=== PATIENT | female | born 1935 ===

== ENCOUNTER → 2017-12-21 | Emergency (ER) | payer OTHER ==
[~2017-12-21] VITALS: Ht 152.4 cm; Wt 60.8 kg
[~2017-12-21] MED LIST: CHEST CONG100 MG/5 M PO; CRESTOR10 MG; DIOVAN160 M1; PRELONE15 MG/5 ML PO; PROVENTIL S2 MG/5 ML PO; ZITHROMAX500 MG PO
== END | disposition home or self-care (01) ==
LOC: ER 10:10
DX: R42 Dizziness and giddiness (principal)

== ENCOUNTER 2018-06-14 21:38 | Emergency (ER) | payer OTHER ==
[~2018-06-14] VITALS: Ht 152.4 cm; Wt 54.9 kg
== END 2018-06-14 22:50 | disposition home or self-care (01) ==
LOC: ER 21:38
DX: S00.03XA Contusion of scalp, initial encounter (principal); W18.09XA Striking against other object with subsequent fall, initial encounter; Y93.89 Activity, other specified; Y92.018 Other place in single-family (private) house as the place of occurrence of the external cause; Y99.8 Other external cause status